=== PATIENT | male | born 1955 | race Hispanic/Latino ===

== ENCOUNTER 2019-04-17 07:49 | Day surgery (SDC) | payer OTHER ==
[2019-04-14 15:15] VITALS: BP 153/84
[2019-04-14 15:27] LABS: BASOPHILS % (AUTO) 1.4 % (0.0-5.0); EOSINOPHILS % (AUTO) 4.9 % (0.0-8.0); LYMPHOCYTES % (AUTO) 31.8 % (21.0-51.0); MEAN CORPUSCULAR HEMOGLOBIN 29.6 pg (27.0-33.0); MEAN CORPUSCULAR HGB CONC 33.2 g/dL (32.0-36.0); MEAN CORPUSCULAR VOLUME 89.1 fL (79-99); MONOCYTES % (AUTO) 7.7 % (3.0-13.0); NEUTROPHILS % (AUTO) 54.2 % (40.0-77.0); PLATELET COUNT (AUTO) 215 K/uL (130-400); RED BLOOD CELL COUNT(AUTO) 5.28 MIL/uL (4.00-5.50); RED CELL DISTRIBUTION WIDTH 14.6 % (11.0-15.5); WHITE BLOOD COUNT (AUTO) 8.2 K/uL (4.8-10.8)
[2019-04-14 15:31] LABS: APPEARANCE,URINE Clear (CLEAR); BILIRUBIN,URINE Negative (NEGATIVE); COLOR,URINE Dark Yellow (YELLOW); GLUCOSE, URINE (UA) Negative (NEGATIVE); KETONES,URINE Negative (NEGATIVE); LEUKOCYTE ESTERASE ,URINE Small (NEGATIVE); NITRATE,URINE Negative (NEGATIVE); OCCULT BLOOD,URINE Negative (NEGATIVE); PH,URINE 6.5 (5.0-8.0); PROTEIN,URINE Trace mg/dL (NEGATIVE)
[2019-04-14 15:39] LABS: POTASSIUM 4.3 mmol/L (3.5-5.1)
[2019-04-14 15:41] LABS: INR 0.95 (0.85-1.15); PARTIAL THROMBOPLASTIN TIME 30.3 SEC (26.3-35.5)
[2019-04-14 16:02] LABS: BACTERIA,URINE Rare /HPF (None Seen); MUCUS,URINE Few LPF (None Seen); RBC,URINE 0-1 /HPF (0-1); SQUAMOUS EPITHELIAL CELL,UR Rare /HPF (0-2)
--- NOTE | 2019-04-16 14:49 | NUR ---
REPORTED EKG TO DOCTOR MASON, NO NEW ORDERS OKAY TO CONTINUE WITH PROCEDURE
[2019-04-17] VITALS (17 sets, daily range): BP systolic 112–159; BP diastolic 68–93
[~2019-04-17] VITALS: Ht 167.6 cm; Wt 77.5 kg
[2019-04-17] MEDS: CEFTRIAXONE SODIUM 1 GM IVP SCH ×2 (06:00→10:45)
[~2019-04-17 07:49] MED LIST: AMLO10TA7 PO; ESOM40CA54 PO; GENTAMICIN 80 MG/NS 100 ML PB 100 ML IV SCH; IBUP-2071 PO; TAMS-1 PO
[2019-04-17] MEDS ORDERED: LACTATED RINGERS 1000ML 1,000 ML IV ONE (09:02)
[2019-04-17] MEDS ORDERED: PROPOFOL 10 MG/ML 20ML VIAL IV ONE (10:22)
[2019-04-17] MEDS ORDERED: LIDOCAINE PF 2% 5ML ABBOJECT ONE (10:22)
[2019-04-17] MEDS ORDERED: FENTANYL CITRATE PF 50 MCG/1 ML 2ML VIAL ONE ×2 (10:23→11:54)
[2019-04-17] MEDS ORDERED: GLYCOPYRROLATE 1 MG/5 ML SYRINGE ONE (11:05)
--- NOTE | 2019-04-17 12:46 | NUR ---
RECEIVE PT RECEIVED FROM PACU VIA STRETCHER AWAKE ALERT ORIENTED X3. PT STABLE. NO COMPLAINTS MADE. PENILE DRESSING DRY AND INTACT, NO BLEEDING NOTED, 3 WAY SALAZAR CATH [address] DRAINING CLEAR YELLOW URINE, ABOUT 50 ML. CBI ONGOING, STOPPED UPON ARRIVAL. Addendum: 04/17/19 at 1516 by ATA MANE RN RN ADDENDUM CALL CHAPPELL WITHIN REACH, CALLED FOR TO COME IN TO ROOM.
--- NOTE | 2019-04-17 13:30 | NUR ---
NOTE PT STATES HE HAS A BURNING SENSATION TO URETHRAL MEATUS WHEN TOUCHED. OFFERED PAIN MEDICINE. PAIN MED VICODIN 5/500MG ORDERED IN CHART N/A IN OMNICELL, CALLED PHARMACIST, STATED THAT DOSE NOT BEING MADE ANYMORE. PAGED DR. SCOTT TO ASK IF WE CAN GIVE DOSE AVAILABLE.
--- NOTE | 2019-04-17 13:40 | NUR ---
NOTE PT STATES HE DID NOT WANT THE PAIN MED ANYMORE. PT STATES HE FEELS BETTER, ONLY HURTS VERY LITTLE AND ONLY WHEN TOUCHED OR MOVED.
--- NOTE | 2019-04-17 13:55 | NUR ---
DISCHARGE PT DISCHARGED VIA WHEELCHAIR WITH . PT STABLE. NOT IN ANY APPARENT DISTRESS. LEG BAG IN PLACE, DRAINING CLEAR YELLOW URINE, 60 ML[address] SALAZAR [address]ACE, TAPED PER MD, PENILE DRESSING REMAINS DRY AND INTACT, NO BLEEDING NOTED. SALAZAR CATHETER HOME CARE INSTRUCTIONS AND DEMONSTRATION GIVEN TO AND PT, BOTH VERBALIZED UNDERSTANDING. PT TOLERATED ORAL FLUIDS WELL.
[2019-04-17] MEDS ORDERED: HYDROCODONE/ACETAMINOPHEN 5/325 MG TAB PO PRN (15:30)
[2019-04-17] MEDS ORDERED: BACITRACIN 28.4 GM OINT TP SCH (21:00)
== END 2019-04-17 13:55 | disposition home or self-care (01) ==
LOC: DAH 07:49 → EDSEX 09:50 → DAH 13:55
PROVIDERS: ATTEND Urology
DX: N40.1 Benign prostatic hyperplasia with lower urinary tract symptoms (principal); R33.8 Other retention of urine; I10 Essential (primary) hypertension; Z98.890 Other specified postprocedural states; Z90.49 Acquired absence of other specified parts of digestive tract; Z79.899 Other long term (current) drug therapy; Z87.891 Personal history of nicotine dependence
CPT/HCPCS: 36415; 52648; 71045; 80048; 81001; 85025; 85610; 85730; 87088; 93005; 96365; A4354; A4358; A4600; A4930; J0696; J1580; J2001; J2704; J3010 ×2; J3490; J7030; J7120

== ENCOUNTER → 2024-12-09 | Outpatient (CLI) | payer OTHER ==
[~2024-12-09] MED LIST changes: +AMLO-258 PO; -AMLO10TA7 PO; -ESOM40CA54 PO; +ESOM40CA66 PO; -GENTAMICIN 80 MG/NS 100 ML PB 100 ML IV SCH
== END | disposition home or self-care (01) ==
LOC: SHCH 12:43
PROVIDERS: ATTEND Internal Medicine
DX: I08.3 Combined rheumatic disorders of mitral, aortic and tricuspid valves (principal); I48.0 Paroxysmal atrial fibrillation; R06.00 Dyspnea, unspecified
CPT/HCPCS: 93306